=== PATIENT | female | born 2000 | race Caucasian/White ===

== ENCOUNTER 2024-08-15 15:14 | Emergency (ER) | payer BC ==
[~2024-08-15] VITALS: Ht 152.4 cm; Wt 47.5 kg
[2024-08-15 15:55] VITALS: TEMP 98.2
[2024-08-15 16:25] LABS: BASOPHILS % (AUTO) 0.4 % (0-1); EOSINOPHILS # (AUTO) 0.1 X10'3 (0-0.9); EOSINOPHILS % (AUTO) 1.1 % (0-6); HEMATOCRIT 37.5 % (35.0-45.0); HEMOGLOBIN 13.4 g/dl (12.0-16.0); LYMPHOCYTES # (AUTO) 1.9 X10'3 (1.1-4.8); LYMPHOCYTES % (AUTO) 27.8 % (21-51); MEAN CORPUSCULAR HEMOGLOBIN 30.6 PG (27.0-31.0); MEAN CORPUSCULAR HGB CONC 35.8 g/dL (33.0-36.5); MEAN CORPUSCULAR VOLUME 85.4 FL (78-98); MEAN PLATELET VOLUME 8.9 FL (7.4-10.4); MONOCYTES # (AUTO) 0.4 X10'3 (0-0.9); MONOCYTES % (AUTO) 6.6 % (2-12); NEUTROPHILS # (AUTO) 4.4 X10'3 (1.8-7.7); NEUTROPHILS % (AUTO) 64.1 % (42-75); PLATELET COUNT 240 X10'3 (140-440); RED BLOOD COUNT 4.39 X10'6 (4.20-5.60); WHITE BLOOD COUNT 6.8 X10'3 (4.5-11.0)
[2024-08-15 16:54] LABS: ALANINE AMINOTRANSFERASE 23 U/L (12-78); ALBUMIN/GLOBULIN RATIO 1.3 (1.1-1.5); ALKALINE PHOSPHATASE 63 IU/L (46-116); ANION GAP 5 (8-16); ASPARTATE AMINO TRANSFERASE 13 U/L (10-37); BILIRUBIN,TOTAL 0.7 MG/DL (0.1-1.0); BLOOD UREA NITROGEN 6 MG/DL (7-18); BUN/CREATININE RATIO 10.9 (10.0-20.0); CALCIUM 8.4 MG/DL (8.5-10.1); CHLORIDE 105 MMOL/L (99-107); CREATININE 0.55 MG/DL (0.40-0.90); GLUCOSE 114 MG/DL (70-104); POTASSIUM 3.4 MMOL/L (3.5-5.1); SODIUM 141 MMOL/L (135-145); TOTAL CARBON DIOXIDE 30.8 MMOL/L (24-32); TOTAL PROTEIN 7.1 G/DL (6.4-8.2); eCRCL 112 ML/MIN; eGFR > 90 ML/MIN
[2024-08-15 17:06] LABS: PRO BRAIN NATRIURETIC PEPTIDE 39 PG/ML (0-125)
[2024-08-15] MEDS ORDERED: HYDR-3686 PO (18:11)
[2024-08-15 18:15] VITALS: BP 130/85; PULSE 85; RESP 19; O2SAT 98
== END 2024-08-15 18:19 | disposition home or self-care (01) ==
LOC: ER 15:15
DX: R00.0 Tachycardia, unspecified (principal); F41.9 Anxiety disorder, unspecified
CPT/HCPCS: 36415; 80053; 83880; 84484; 85025; 93005; 99284

== ENCOUNTER 2025-04-29 16:01 | Emergency (ER) | payer BC ==
[~2025-04-29] VITALS: Ht 152.4 cm; Wt 49.5 kg
[~2025-04-29 16:01] MED LIST: HYDR-3686 PO
[2025-04-29 16:03] VITALS: BP 133/88; PULSE 107; RESP 16; TEMP 98.5; O2SAT 99
--- NOTE | 2025-04-29 16:10 | ELECTROCARDIOGRAPH REPORT ---
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 Nomi Sahu Measurements Intervals [place] Rate: 90 P: 0 LA: 0 QRS: 16 QRSD: 103 T: 11 QT: 362 QTc: 443 Interpretive Statements Atrial fibrillation S1,S2,S3 pattern RSR' in V1 or V2, right VCD or RVH Electronically Signed On 04-29-2025 16:20:[address] Nomi Sahu Please click the below link to view image of tracing.
[2025-04-29 16:39] LABS: MEAN PLATELET VOLUME 9.4 FL (7.4-10.4); RED CELL DISTRIBUTION WIDTH 12.7 % (11.5-14.5)
[2025-04-29 16:40] LABS: CREATININE 0.66 MG/DL (0.40-0.90); TOTAL CARBON DIOXIDE 25.9 MMOL/L (24-32); eCRCL 93 ML/MIN; eGFR > 90 ML/MIN
--- NOTE | 2025-04-29 18:25 | Physician Documentation ---
History of Present Illness ~ Chief Complaint: Dizziness Stated Complaint: DIZZINESS Time Seen by MD: 16:13 Source: patient Mode of Arrival: POV Exam Limitations: no limitations HPI 24-year-old female with chief complaint dizziness when she stands up. She states that she has been having this over the past few days. Has never had anything like this before. 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 She denies heavy menstrual cycles or any history of anemia. She states I suppose it could be due to some dehydration. She denies chest pain, palpitations. Medication Reconciliation Allergies: Coded Allergies: No Known Allergies (Unverified , 04/29/25) Scheduled PRN Hydroxyzine Hcl (Atarax), 1 TAB PO Q12H PRN for for anxiety/agitation Past Medical History Past Medical History: Anxiety Review of Systems All Other Systems at this time: Reviewed and Negative Physical Exam Vital Signs: Temperature: 98.5, Source: Oral, Heart Rate: 107, Respiratory Rate: 16, BP: 133/88, Pulse Oximetry: 99, Weight: 49.500 Oxygen Flow Rate: 0 Physical Exam General Appearance: Alert, WD/WN. NAD. HEENT: NCAT, PERRL, EOMI. Neck: Supple, trachea midline. Cardiovascular: RRR. No m/r/g. Lungs: Breathing unlabored Extremities: Normal inspection. No edema. Skin: Warm/dry, normal color Neurological: Alert and oriented x4, normal gait. Psychiatric: Affect congruent with mood. Progress Results/Orders Results/Orders Orders - DELISA STANLEY Stat Ekg (04/29/25 ) Completed Orders - DELISA STANLEY Cbc/Diff (04/29/25 16:05) CMP (04/29/25 16:05) Stat Ekg (04/29/25 ) TSH (04/29/25 16:12) Vital Signs 04/29/25 16:03 Temp 98.5 Pulse 107 Resp 16 B/P (MAP) 133/88 Pulse Ox 99 O2 Flow Rate 0 Laboratory Tests Test 04/29/25 16:12 White Blood Count 7.6 Red Blood Count 4.80 Hemoglobin 14.4 Hematocrit 40.8 Mean Corpuscular Volume 85.0 Mean Corpuscular Hemoglobin 30.0 Mean Corpuscular Hemoglobin Concent 35.3 Red Cell Distribution Width 12.7 Platelet Count 259 Mean Platelet Volume 9.4 Neutrophils (%) (Auto) 68.7 Lymphocytes (%) (Auto) 24.6 Monocytes (%) (Auto) 5.7 Eosinophils (%) (Auto) 0.7 Basophils (%) (Auto) 0.3 Neutrophils # (Auto) 5.2 Lymphocytes # (Auto) 1.9 Monocytes # (Auto) 0.4 Eosinophils # (Auto) 0.0 Basophils # (Auto) 0.0 CBC Comment Sodium Level 139 Potassium Level 3.6 Chloride Level 104 Carbon Dioxide Level 25.9 Anion Gap 9 Blood Urea Nitrogen 9 Creatinine 0.66 Estimated GFR/1.73 m2 > 90 BUN/Creatinine Ratio 13.6 Glucose Level 91 Calcium Level 8.7 Total Bilirubin 0.7 Aspartate Amino Transf (AST/SGOT) 20 Alanine Aminotransferase (ALT/SGPT) 20 Alkaline Phosphatase 71 Total Protein 7.9 Albumin 4.3 Globulin 3.6 Albumin/Globulin Ratio 1.2 Thyroid Stimulating Hormone (TSH) 1.22 Chemistry Comments Medical Decision Making Additional information obtaine: N/A Findings n/a Differential Dx:Considerations: Include: anemia, CVA, dehydration, dysrhythmia, electrolyte imbalance, encephalopathy, Guillain-[place], hypoglycemia, hypotension, hypovolemia, labyrinthitis, Meniere's disease, myasathenia gravis, myocardial infarction, pulmonary embolus, renal failure, respiratory failure, TIA, VBI, vertigo central, vertigo peripheral, vestibular neuronitis Departure Time of Disposition: 18:23 Disposition: 01 HOME / SELF CARE / HOMELESS Impression: Primary Impression: Dizziness Condition: Stable Discharge Instructions: Dizziness Additional Instructions: DIZZINESS IS POSITIONAL, SUSPECT ORTHOSTATIC HYPOTENSION, I RECOMMENDED ORTHOSTATIC VITALS BUT THESE WHERE NOT DONE. 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
== END 2025-04-29 18:16 | disposition home or self-care (01) ==
LOC: ER 16:02
DX: R42 Dizziness and giddiness (principal); I48.91 Unspecified atrial fibrillation; Z79.899 Other long term (current) drug therapy
CPT/HCPCS: 36415; 80053; 84443; 85025; 93005; 99284